=== PATIENT | female | born 1945 | race Caucasian/White ===

== ENCOUNTER → 2017-02-16 | Day surgery (SDC) | payer MEDICARE ==
[~2017-02-16] MED LIST: ALAV10TA PO; ALBU1AER INH; ALPR.25 PO; APREPITANT 40 MG CAP ONE; BUPIVACAINE/EPINEPHRINE 0.25% 50 ML VIAL ONE; CETI10 PO; CLAR10TA7 PO; LACTATED RINGER'S 1000 ML INJ 1,000 ML ONE; LOSA50TA PO; METHY5 PO; MIDAZOLAM HCL 2 MG/2 ML VIAL ONE; NEXI20CA PO; ONDANSETRON HCL 4 MG/2 ML VIAL IV PUSH ONE; PROPOFOL 200 MG/20 ML AMP IV ONE; SODIUM CHLORIDE 0.9% 250 ML ADDBAG IV ONE; SYMB160A INH; TAMO20TA4 PO; TUMS500C PO; VANCOMYCIN HCL 1000 MG VIAL ONE; VITA20003; XALA0.00 EACH EYE
--- NOTE | 2017-02-16 16:10 | TN ---
cc: RICARDO DIALLO DATE OF SURGERY: 02/16/2017 PREOPERATIVE DIAGNOSIS Locally recurrent breast cancer, right breast. POSTOPERATIVE DIAGNOSIS Locally recurrent breast cancer, right breast. PROCEDURE Excision of local breast cancer recurrence right chest wall previous mastectomy site with 2 cm x 5 cm excision of skin and subcutaneous tissue down to pectoralis muscle. ATTENDING SURGEON Dr. Diallo. QUALITY MEASUREMENT SPECIALIST Staff. ANESTHESIA General and local anesthetic. BLOOD LOSS Less than 10 ccs. COMPLICATIONS None. FINDINGS Completely grossly normal tissue on excision of chest wall. INDICATIONS FOR PROCEDURE The patient is a pleasant 71-year-old female who noted a nodule on her right breast mastectomy site after previous mastectomy for invasive ductal carcinoma of the breast. The patient underwent a biopsy of this as an outpatient in the office, did return consistent with a very small area of invasive ductal adenocarcinoma. Discussion with the patient, I was concerned that this needed to be excised more aggressively to ensure complete excision of this local recurrence and negative margins and recommended proceeding to the operating room. Risks, benefits and alternatives were discussed with the patient prior to the procedure and the patient agreed to undergo the procedure. PROCEDURE The patient was taken to the operating room and placed in supine position, placed under general anesthesia. The patient's right chest wall was prepped and draped in sterile fashion. Time-out was performed. Local anesthetic was instilled in the area of the recurrence. We excised this approximately 2 cm x 5 cm elliptical incision, completely encompassing the previous biopsy site with 15 blade scalpel. Bovie electrocautery was used to dissect the subcutaneous tissue and down to the pectoralis muscle. This was excised off the pectoralis muscle with the Bovie electrocautery and completely. Again, this was all gross healthy viable subcutaneous type tissue. We did geovanna this with a stitch superior for margin evaluation and passed off for permanent processing. We then mobilized some of the subcutaneous tissue and skin of the patient's previous skin flaps and closed this with a 3-0 deep dermal Vicryl suture followed by 4-0 Monocryl and Dermabond. The patient was discontinued from anesthesia and taken to the PACU in stable condition. The patient tolerated the procedure well with no apparent complications. All counts were correct and I was present and scrubbed for the entire procedure. MD AGAPITO Lazaro/CHUCKL /3:40 PM /3:52 PM
== END | disposition home or self-care (01) ==
LOC: ESDC 08:48
PROVIDERS: ATTEND Surgery
DX: C50.911 Malignant neoplasm of unspecified site of right female breast (principal); Z85.3 Personal history of malignant neoplasm of breast; Z90.11 Acquired absence of right breast and nipple
CPT/HCPCS: 00400; 19120; 88305; J2250; J2405; J3010; J3370; J7120; J8501; 88342